=== PATIENT | male | born 1975 | race Caucasian/White ===

== ENCOUNTER → 2017-10-16 | Outpatient (CLI) | payer BC | END | disposition home or self-care (01) | LOC: KCIC 09:16 | DX: M47.892 Other spondylosis, cervical region (principal); M62.838 Other muscle spasm; G56.23 Lesion of ulnar nerve, bilateral upper limbs | CPT/HCPCS: 72040 ==

== ENCOUNTER → 2018-07-17 | Outpatient (CLI) | payer BC ==
--- NOTE | 2018-07-17 12:24 | KCIC ---
Chest, 2 views, 07/17/2018: HISTORY: Preop evaluation for wrist surgery The heart size and pulmonary vascularity are normal. No pulmonary infiltrate is seen. There is no evidence of pleural fluid. IMPRESSION: No acute cardiopulmonary abnormality is detected. Electronically signed by: Elliott Gordon MD (07/17/2018 12:20 PM) [facility]
== END | disposition home or self-care (01) ==
LOC: KCIC 10:36
PROVIDERS: ATTEND Nurse Practitioner Family
DX: Z01.818 Encounter for other preprocedural examination (principal)
CPT/HCPCS: 71046